=== PATIENT | female | born 1960 | race Caucasian/White ===

== ENCOUNTER 2019-02-26 01:59 | Emergency (ER) | payer OTHER ==
--- NOTE | 2019-02-26 02:18 | ER Report ---
History and Physical Time Seen By MD: 02:18 Hx. of Stated Complaint: PATIENT STATES THAT SHE THINKS THAT SHE IS IN A-FIB; STARTED A COUPLE HOURS AGO AND CAN NOT GET TO SLEEP HPI/ROS CHIEF COMPLAINT: Feeling heart fluttering HISTORY OF PRESENT ILLNESS: This is a 58-year-old female. History of atrial flut ter. She felt fluttering for a couple of hours and could not sleep. She is traveling from [place] to [place] at this time. She took her medicine, Tiazac, but is still feeling abnormal and difficult time sleeping so she wanted to know if she was i in atrial flutter. If not she would like to go back to the hotel and sleep. If she is she would like to address that. Denies any shortness of breath at this time. Denies any nausea. No chest pain. Allergies: Coded Allergies: No Known Drug Allergies (Unverified , 02/26/19) Home Meds Reported Medications Diltiazem Hcl (TIAZAC) 120 Mg Capsule.er, 120 MG PO 02/26/19 Reviewed Nurses Notes: Yes Constitutional Vital Sign - Last 24 Hours 02/26/19 02/26/19 02/26/19 02/26/19 02:06 02:08 02:09 02:14 Temp 98.3 Pulse 82 81 81 Resp 17 11 13 B/P (MAP) 150/91 (110) 150/91 Pulse Ox 92 92 91 O2 Delivery Room Air 02/26/19 02/26/19 02/26/19 02/26/19 02:19 02:30 02:34 02:44 Pulse 81 77 74 Resp 12 15 B/P (MAP) 142/51 (81) Pulse Ox 92 91 Physical Exam General Appearance: Alert, no acute distress.[ ] Respiratory: Lungs are clear to auscultation. Cardiac: regular rate and rhythm, normal peripheral perfusion. Gastrointestinal: Normal active bowel sounds. Soft nontender. DIFFERENTIAL DIAGNOSIS: After history and physical exam differential diagnosis was considered for patient with flutter feeling in her chest, we'll check EKG to see if she is in atrial flutter. Heart rhythm strip looks normal right now like a normal sinus rhythm. Medical Decision Making EKG/Imaging EKG Interpretation 12 lead EKG: Rhythm: Normal sinus rhythm, rate 77 Sinclair: normal QRS: normal ST segments: normal ED Course/Re-evaluation ED Course Reviewed with the patient that she is in a normal sinus rhythm right now. At this point she would like to go back to the hotel and sleep and continue on her travels. No other workup at this time Decision to Disposition Date: February 26, 2019 Decision to Disposition Time: 02:39 Depart Departure Latest Vital Signs Vital Signs Date Time Temp Pulse Resp B/P (MAP) Pulse Ox O2 Delivery O2 Flow Rate FiO2 02/26/19 02:44 74 15 91 02/26/19 02:30 142/51 (81) 02/26/19 02:08 98.3 Room Air Impression: Primary Impression: Palpitations Condition: Improved Disposition: HOME OR SELF-CARE Additional Instructions: Your heart is in a normal sinus rhythm. No sign of atrial flutter at this time. No changes. AURORA ARNETT MD February 26, 2019 02:18
[2019-02-26] MEDS ORDERED: DILT120C22 PO (02:27)
[2019-02-26 02:30] VITALS: BP 142/51
--- NOTE | 2019-02-26 02:49 | EKG ---
FACILITY: [facility] PATIENT NAME: PAULO OROZCO : [id number] MR: [id number] V: [id number] EXAM DATE: ORDERING PHYSICIAN: AURORA ARNETT TECHNOLOGIST: JUANCHO Test Reason : FLUTTERING IN CHEST Blood Pressure : / mmHG Vent. Rate : 077 BPM Atrial Rate : 077 BPM P-R Int : 166 ms QRS Dur : 104 ms QT Int : 400 ms P-R-T Axes : 066 -11 052 degrees QTc Int : 452 ms Normal sinus rhythm Normal ECG No previous ECGs available Confirmed by ADELA KANG ([id number]) on 02/26/2019 6:35:48 AM Referred By: Confirmed By:ADELA KANG
== END 2019-02-26 02:50 | disposition home or self-care (01) ==
LOC: ER 02:11
DX: R00.2 Palpitations (principal)
CPT/HCPCS: 93005; 99283